=== PATIENT | male | born 1990 | race Caucasian/White ===

== ENCOUNTER 2016-11-01 16:48 | Emergency (ER) | payer BC ==
[~2016-11-01] VITALS: Ht 170.2 cm; Wt 66.7 kg
[2016-11-01] MEDS ORDERED: METOCLOPRAMIDE HCL 10 MG TABLET ONE (17:51)
[2016-11-01] MEDS ORDERED: diphenhydrAMINE HCL 25 MG CAPSULE ONE (17:51)
[2016-11-01] MEDS ORDERED: LORAZEPAM 1 MG TABLET ONE (17:52)
[2016-11-01] MEDS ORDERED: KETOROLAC TROMETHAMINE INJ 30 MG/ML VIAL ONE (17:52)
[2016-11-01] MEDS ORDERED: KETOROLAC TROMETHAMINE INJ 60 MG/2 ML VIAL IM ONE (18:00)
[2016-11-01] MEDS ORDERED: diphenhydrAMINE HCL 25 MG CAPSULE PO ONE (18:00)
[2016-11-01] MEDS ORDERED: LORAZEPAM 0.5 MG TABLET PO ONE (18:00)
[2016-11-01] MEDS ORDERED: METOCLOPRAMIDE HCL 10 MG TABLET PO ONE (18:00)
[2016-11-01] MEDS ORDERED: IV SET PRIMARY 1 EA INFUS.SET MC ONE (18:10)
[2016-11-01] MEDS ORDERED: METOCLOPRAMIDE HCL 10 MG/2 ML VIAL ONE (18:10)
[2016-11-01] MEDS ORDERED: diphenhydrAMINE HCL 50 MG/ML VIAL ONE (18:10)
[2016-11-01] MEDS ORDERED: IV NS 0.9% 1,000 ML ONE (18:10)
[2016-11-01] MEDS ORDERED: LORAZEPAM INJ 2 MG/ML VIAL ONE (18:11)
[2016-11-01] MEDS ORDERED: IV NS 0.9% 1,000 ML BAG IV ONE (18:30)
[2016-11-01] MEDS ORDERED: METOCLOPRAMIDE HCL 10 MG/2 ML VIAL IV ONE (18:30)
[2016-11-01] MEDS ORDERED: LORAZEPAM INJ 2 MG/ML VIAL IV ONE (18:30)
[2016-11-01] MEDS ORDERED: diphenhydrAMINE HCL 50 MG/ML VIAL IV ONE (18:30)
[2016-11-01 18:53] LABS: BASOPHILS # (AUTO) 0.5 /CMM (0.0-0.2); BASOPHILS % (AUTO) 3.6 % (0.0-2.0); DIFF TOTAL % 100 %; EOSINOPHILS % (AUTO) 0.1 % (0.0-6.0); HEMATOCRIT 48 % (39-51); LYMPHOCYTES # (AUTO) 0.7 /CMM (0.8-4.8); LYMPHOCYTES % (AUTO) 5.1 % (20.0-44.0); MEAN CORPUSCULAR HEMOGLOBIN 28 PG (26.0-33.0); MEAN CORPUSCULAR HGB CONC 33 g/dl (31.0-36.0); MEAN CORPUSCULAR VOLUME 84 fL (80-96); MONOCYTES # (AUTO) 0.5 /CMM (0.1-1.30); MONOCYTES % (AUTO) 3.3 % (2.0-12.0); NEUTROPHILS # (AUTO) 12.1 /CMM (1.8-8.9); NEUTROPHILS % (AUTO) 87.9 % (43.0-81.0); PLATELET COUNT (AUTO) 266 /CMM (150-450); RED BLOOD CELL COUNT(AUTO) 5.72 MIL/uL (4.5-6.0); WHITE BLOOD COUNT (AUTO) 13.8 K/uL (4.3-11.0)
[2016-11-01] MEDS ORDERED: CT SWABBABLE VALVE TRANS SET 1 EA INFUS.SET MC ONE (18:53)
[2016-11-01] MEDS ORDERED: IV NS 0.9% 250 ML IV ONE (18:53)
[2016-11-01] MEDS ORDERED: IOHEXOL-350 100 ML VIAL IV ONE (18:54)
[2016-11-01 19:01] LABS: ANION GAP 16 (5-14); CALCIUM, SERUM 8.9 mg/dL (8.5-10.1); CARBON DIOXIDE 25 mmol/L (21-32); CHLORIDE 101 mmol/L (98-107); GFR 92 mL/min (>60); GLUCOSE 124 mg/dL (74-106); POTASSIUM 5.6 mmol/L (3.5-5.1); SODIUM SERUM 137 mmol/L (136-145); UREA NITROGEN, BLOOD 13 mg/dL (7-18)
[2016-11-01 19:08] LABS: INR 1.01 (0.87-1.13); PROTHROMBIN TIME 10.6 SECS (9.5-12.7)
[2016-11-01 19:10] LABS: TROPONIN I < 0.017 ng/mL (0.00-0.056)
[2016-11-01 21:25] VITALS: BP 136/77
== END 2016-11-01 21:26 | disposition home or self-care (01) ==
LOC: ER 16:51
DX: G43.909 Migraine, unspecified, not intractable, without status migrainosus (principal); R47.01 Aphasia; D72.829 Elevated white blood cell count, unspecified; R11.2 Nausea with vomiting, unspecified; R79.1 Abnormal coagulation profile
CPT/HCPCS: 36415; 70450; 70496; 70498; 71010; 80048; 84132; 84484; 85025; 85730; 93005; 96361; 96372; 96374; 96375; 99285; A4606; J1200; J1885; J2060; J2765; J7030; J7050; J8597; Q0163; Q9967; Z7610